=== PATIENT | male | born 1980 | race Caucasian/White ===

== ENCOUNTER 2020-03-01 10:23 | Outpatient (REF) | payer OTHER, SELFPAY | END 2020-03-01 10:24 | disposition home or self-care (01) | LOC: HO.LAB 10:23 | PROVIDERS: Visit Provider Internal Medicine | DX: Z20.828 Contact with and (suspected) exposure to other viral communicable diseases (principal) | CPT/HCPCS: C9803; U0003 ==

== ENCOUNTER → 2020-05-14 09:37 | Outpatient (BNVA) | payer OTHER, SELFPAY | PROVIDERS: Visit Provider Physician Assistant Medical | DX: S29.8XXA Other specified injuries of thorax, initial encounter (principal); W24.0XXA Contact with lifting devices, not elsewhere classified, initial encounter | CPT/HCPCS: 72072; 99203 ==

== ENCOUNTER → 2020-05-18 14:13 | Outpatient (BNVA) | payer OTHER, SELFPAY | PROVIDERS: Visit Provider Physician Assistant | DX: S30.0XXD Contusion of lower back and pelvis, subsequent encounter (principal); X58.XXXD Exposure to other specified factors, subsequent encounter | CPT/HCPCS: 99213 ==

== ENCOUNTER → 2020-05-25 09:02 | Outpatient (BNVA) | payer OTHER, SELFPAY | PROVIDERS: Visit Provider Physician Assistant | DX: S30.0XXD Contusion of lower back and pelvis, subsequent encounter (principal); X58.XXXD Exposure to other specified factors, subsequent encounter | CPT/HCPCS: 99213 ==

== ENCOUNTER → 2020-06-01 12:55 | Outpatient (BNVA) | payer OTHER, SELFPAY | PROVIDERS: Visit Provider Internal Medicine | DX: S30.0XXD Contusion of lower back and pelvis, subsequent encounter (principal); X58.XXXD Exposure to other specified factors, subsequent encounter | CPT/HCPCS: 99213 ==

== ENCOUNTER → 2020-06-10 13:47 | Outpatient (BNVA) | payer OTHER, SELFPAY | PROVIDERS: Visit Provider Internal Medicine | DX: S30.0XXD Contusion of lower back and pelvis, subsequent encounter (principal); X58.XXXD Exposure to other specified factors, subsequent encounter | CPT/HCPCS: 99213 ==

== ENCOUNTER → 2020-06-18 13:04 | Outpatient (BNVA) | payer OTHER, SELFPAY | PROVIDERS: Visit Provider Internal Medicine | DX: S20.219D Contusion of unspecified front wall of thorax, subsequent encounter (principal); X58.XXXD Exposure to other specified factors, subsequent encounter | CPT/HCPCS: 71101; 99214 ==

== ENCOUNTER → 2020-07-02 12:51 | Outpatient (BNVA) | payer OTHER, SELFPAY | PROVIDERS: Visit Provider Internal Medicine | DX: S20.219D Contusion of unspecified front wall of thorax, subsequent encounter (principal); X58.XXXD Exposure to other specified factors, subsequent encounter | CPT/HCPCS: 99213 ==

== ENCOUNTER 2020-07-15 10:00 | Outpatient (RCR) | payer OTHER, SELFPAY ==
--- NOTE | 2020-05-25 12:18 | MHC.PT.EP ---
[facility] [place] Office [place] Office [place] Office [address] Hiren Norris [address] [phone] F: [phone] F: [phone] F: [phone] F: [phone] Physical Therapy Plan of Care Date of Evaluation: 05/25/20 Date of Surgery: NA Diagnosis: R lumbar paraspinal contusion Assessment: 39 year old male referred for R lumbar paraspinal contusion . Pt reports of injuring his back at work about 2 weeks back. The handle of a pallet meena hit him in his back while he was working on a machine. Pt continued to work for the rest of the day. Pt had significant increase in pain the following day and therefore followed up with WC. Pt was given muscle relaxants. Pt had mild relief with these medications. Examination reveals 7/10 pain with standing, walking, forward bending, 5/10 pain with sitting, decreased trunk ROM, decreased muscle strength and altered posture. Pt has TTP alone R T9-T10 thoracic paraspinals. He is independent with ADLS but takes longer to complete it. 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 He is currently out of work. He is a good candidate for PT based on age, goals, physical impairments and functional limitations. He would benefit from PT to decrease pain, improve ROM, increase muscle strength, functional training and postural correction. Frequency and Duration: The patient will be seen 2/week for 4 weeks Short Term Goals: 1. Pt will have 50% decrease in pain which will enable him to sleep supine in 2 weeks. 2. Pt will be able to move trunk through all planes of motion without pain which will enable him to dress lower body without pain in 3 weeks. 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 Pt will be able to perform all ADLs without pain in 4 weeks. 2. Pt will return to PLOF in 4 weeks. Treatment Plan: Modalities to reduce pain, spasms and effusion. Manual therapy to restore motion and function. Therapeutic exercise to improve strength and flexibility. Neuromuscular re-education for posture and balance. Therapeutic activities to return to functional activities of daily living. Electronically signed by: Marsha Roman, DPT Please sign and return to therapist. Thank you for your referral.
--- NOTE | 2020-07-15 11:03 | MHC.PT.DC ---
[facility] [place] Office [place] Office [place] Office [address] Hiren Norris [address] [phone] F: [phone] F: [phone] F: [phone] F: [phone] Physical Therapy Discharge Report Diagnosis: R lumbar paraspinal contusion Date of Surgery: NA Date of Evaluation: 05/25/20 Date of Discharge: 07/15/20 Treatments to Date: 13 Cancellations to Date: 1 No Shows to Date: 1 Discharge Status: Improved Function Discharge Summary: Evin has completed 13 visits of outpatient physical therapy after injuring his back at work. During this time he has made improvements in LE strength and flexibility, core stability, lifting mechanics, and decreased levels of pain. Evin has met the majority of his physical therapy goals. 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 Evin was educated extensively on maintaining proper body mechanics when lifting and carrying items and he was given an extensive HEP to allow him to continue to manage his symptoms and maintain his health independently. Evin is now being discharged from physical therapy. Electronically signed by: Marsha Owens, PT, DPT Please sign and return to therapist. Thank you for your referral.
== END 2020-07-15 11:04 | disposition other institution (70) ==
LOC: HO.PT 10:00
PROVIDERS: Visit Provider Internal Medicine
DX: S30.0XXD Contusion of lower back and pelvis, subsequent encounter (principal)
CPT/HCPCS: 97110; 97112; 97140; 97161; 97530

== ENCOUNTER → 2020-07-20 14:00 | Outpatient (BNVA) | payer OTHER, SELFPAY | PROVIDERS: Visit Provider Internal Medicine | DX: S20.219D Contusion of unspecified front wall of thorax, subsequent encounter (principal); X58.XXXD Exposure to other specified factors, subsequent encounter | CPT/HCPCS: 99213 ==

== ENCOUNTER 2020-12-03 19:28 | Emergency (ER) | payer MEDICAID, SELFPAY ==
[2020-12-03 19:43] VITALS: BP 144/97; PULSE 95; RESP 16; TEMP 37.2; O2SAT 98; BMI 36.7
[2020-12-03 20:11] LABS: MANUAL DIFF FLAG NO
[2020-12-03 20:13] LABS: Basophils Percent Auto 0.3 % (0-2); Eosinophils Absolute Auto 0.2 X10*3/uL (0.0-0.4); Eosinophils Percent Auto 1.3 % (0-4); Hematocrit 47.9 % (42-52); Imm Gran Abs Auto 0.06 X10*3/uL (0.00-0.03); Imm Gran Pct Auto 0.5 % (0.0-0.4); Lymphocytes Absolute Auto 1.9 X10*3/uL (1.2-4.9); Lymphocytes Percent Auto 15.7 % (20-40); Mean Corpuscular HGB Conc 33.4 g/dl (31.0-36.0); Mean Corpuscular Volume 86.8 fL (80-98); Mean Platelet Volume 10.5 fL (9.4-12.4); Monocytes Absolute Auto 0.7 X10*3/uL (0.1-1.2); Monocytes Percent Auto 5.9 % (2-11); Neutrophils Absolute Auto 9.4 X10*3/uL (2.0-8.3); Neutrophils Percent Auto 76.3 % (45-73); Platelet Count 231 X10*3/uL (160-400); Red Blood Count 5.52 X10*6/uL (4.60-5.80); Red Cell Distribution Width 12.2 % (11.0-16.0); White Blood Count 12.3 X10*3/uL (4.8-10.8)
[2020-12-03 20:14] LABS: Glucose Urine UA >=1000 MG/DL (NEG); Leukocyte Esterase Urine TRACE (NEG); Nitrite Urine NEG (NEG); Specific Gravity - Urine >= 1.030 (1.005-1.025); UACC Culture Trigger YES; Urine Blood TRACE (NEG); Urine Ketones NEG (NEG); Urine Protein 2+ MG/DL (NEG-TRACE)
[2020-12-03 20:15] LABS: Appearance Urine HAZY; Color Urine AMBER
[2020-12-03 20:29] LABS: Bacteria Urine 1+ /LPF; Mucus Urine 2+ /LPF; Squamous Epithelial Cell Urine 1+ /LPF
[2020-12-03 20:45] LABS: Alanine Aminotransferase 30 U/L (0-40); Albumin Level 4.5 g/dL (3.5-5.0); Alkaline Phosphatase 96 U/L (39-117); Anion Gap 15 (12-20); Aspartate Amino Transferase 15 U/L (5-37); Blood Urea Nitrogen 13 mg/dL (9-16); Calcium 9.6 mg/dL (8.4-10.2); Carbon Dioxide 24 mmol/L (22-29); Chloride 102 mmol/L (96-108); Creatinine Clr Calc Pharmacy 110.4; Estimated Glomerular Filt Rate > 60; Glucose Random 355 mg/dL (60-115); Potassium 4.1 mmol/L (3.3-5.1); Sodium 137 mmol/L (135-145); Total Protein 7.3 g/dL (6.5-8.0)
--- NOTE | 2020-12-03 22:16 | ED.MALEGU ---
HPI - Male Genitourinary General Chief complaint: Urogenital-Male Stated complaint: Blood in urine Time Seen by Provider: 12/03/20 20:48 History of Present Illness HPI Narrative: Patient complains of episode of blood in the urine accompanied by dysuria which began this morning, no fever no chills no flank pain no dizziness no weakness no abdominal pain no nausea no vomiting, no abdominal pain Related Data Home Medications Medication Instructions Recorded Confirmed dulaglutide 0.75 mg/0.5 mL 1 mg SUBCUT QWEEK 12/03/20 12/03/20 subcutaneous pen injector (Trulicity) Previous Rx's Medication Instructions Recorded cefuroxime axetil 500 mg tablet 500 mg PO Q12H 7 Days #14 tab 12/03/20 Allergies Allergy/AdvReac Type Severity Reaction Status Date / Time No Known Allergies Allergy Verified 12/03/20 19:43 Review of Systems Review of Systems: Positive for blood in the urine and dysuria Negatives are no fever no chills no dizziness or weakness no fainting no feeling faint no headache no neck pain no chest pain no shortness of breath no abdominal pain no nausea vomiting or diarrhea no flank pain no back pain no skin rash no leg swelling Yes all other systems are reviewed and are negative [facility] Past Medical History Attestation statement: The following information was validated with the patient. [facility] Narrative: Patient is insulin-dependent diabetic but lost his insurance a few months ago so has not used his insulin in 3 months, he still has his diabetic doctor and can see her easily Source: nursing notes reviewed Medical History (Updated 12/03/20 @ 23:46 by RONNELL Lopez) Diabetes Social History Social History Advance Directives: No Physical Exam Vital Signs: Vital Signs: Last Vital Signs Temp 98.6 F 12/04/20 00:40 Pulse 88 12/04/20 00:40 Resp 16 12/04/20 00:40 BP 138/67 12/04/20 00:40 Pulse Ox 98 12/04/20 00:40 Body Mass Index 36.7 General appearance is no acute distress, comfortable The pupils are anicteric with no pallor The pharynx is clear with no redness or swelling, mucous membranes moist Neck is supple Respiratory no distress Chest clear to auscultation bilateral Abdomen is soft and nontender The back there is no CVA tenderness extremities no edema Course Course Course Narrative: Patient with 1 day of burning with urination and some blood in the urine, as well as being a noncompliant diabetic with a glucose of 354, no DKA, anion gap was normal, no fever White count was 12.3 and pulse was 95 Urinalysis was positive for urinary tract infection with bacteria white cells and red cells, there were no ketones initially plan was for admission but after discussion with hospitalist it was agreed that this patient could undergo trial of outpatient antibiotic as he is well-appearing and stable MDM - Male Genitourinary Lab Data Attestation: I reviewed the patient's lab results. Result diagrams: 12/03/20 20:06 12/03/20 20:06 Labs: Lab Results 12/03/20 12/03/20 12/03/20 Range/Units 20:06 20:06 20:06 WBC 12.3 H (4.8-10.8) X10*3/uL RBC 5.52 (4.60-5.80) X10*6/uL Hgb 16.0 (14.0-18.0) g/dl Hct 47.9 (42-52) % MCV 86.8 (80-98) fL MCH 29.0 (27.0-33.0) pg MCHC 33.4 (31.0-36.0) g/dl RDW 12.2 (11.0-16.0) % Plt Count 231 (160-400) X10*3/uL MPV 10.5 (9.4-12.4) fL Immature Gran % (Auto) 0.5 H (0.0-0.4) % Neut % (Auto) 76.3 H (45-73) % Lymph % (Auto) 15.7 L (20-40) % [place] % (Auto) 5.9 (2-11) % Eos % (Auto) 1.3 (0-4) % Baso % (Auto) 0.3 (0-2) % Lymph # (Auto) 1.9 (1.2-4.9) X10*3/uL [place] # (Auto) 0.7 (0.1-1.2) X10*3/uL Eos # (Auto) 0.2 (0.0-0.4) X10*3/uL Baso # (Auto) 0.0 (0.0-0.2) X10*3/uL Abs Immat Gran (auto) 0.06 H (0.00-0.03) X10*3/uL Absolute Neuts (auto) 9.4 H (2.0-8.3) X10*3/uL Absolute Nucleated RBC 0.000 (0.0-0.012) X10*3/uL Nucleated RBC % (auto) 0.0 (0.0-0.2) /100WBC Sodium 137 (135-145) mmol/L Potassium 4.1 (3.3-5.1) mmol/L Chloride 102 (96-108) mmol/L Carbon Dioxide 24 (22-29) mmol/L Anion Gap 15 (12-20) BUN 13 (9-16) mg/dL Creatinine 1.25 (0.5-1.4) mg/dL Estim Creat Clear Calc 110.4 Estimated GFR > 60 Random Glucose 355 H* (60-115) mg/dL Lactic Acid (0.5-2.0) mmol/L Calcium 9.6 (8.4-10.2) mg/dL Total Bilirubin 1.0 (0.0-1.0) mg/dL AST 15 (5-37) U/L ALT 30 (0-40) U/L Alkaline Phosphatase 96 (39-117) U/L Total Protein 7.3 (6.5-8.0) g/dL Albumin 4.5 (3.5-5.0) g/dL Urine Color SADAF Urine Appearance HAZY Urine pH 6.0 (5.0-8.0) Ur Specific [place] >= 1.030 H (1.005-1.025) Urine Protein 2+ H (NEG-TRACE) MG/DL Urine Glucose (UA) >=1000 H (NEG) MG/DL Urine Ketones NEG (NEG) MG/DL Urine Blood TRACE (NEG) Urine Nitrite NEG (NEG) Ur Leukocyte Esterase TRACE H (NEG) Urine RBC 5-9 H (0) /HPF Urine WBC 10-14 H (0-4) /HPF Ur Squamous Epith Cells 1+ /LPF Urine Bacteria 1+ /LPF Urine Mucus 2+ /LPF 12/03/ Range/Units 22:46 WBC (4.8-10.8) X10*3/uL RBC (4.60-5.80) X10*6/uL Hgb (14.0-18.0) g/dl Hct (42-52) % MCV (80-98) fL MCH (27.0-33.0) pg MCHC (31.0-36.0) g/dl RDW (11.0-16.0) % Plt Count (160-400) X10*3/uL MPV (9.4-12.4) fL Immature Gran % (Auto) (0.0-0.4) % Neut % (Auto) (45-73) % Lymph % (Auto) (20-40) % [place] % (Auto) (2-11) % Eos % (Auto) (0-4) % Baso % (Auto) (0-2) % Lymph # (Auto) (1.2-4.9) X10*3/uL [place] # (Auto) (0.1-1.2) X10*3/uL Eos # (Auto) (0.0-0.4) X10*3/uL Baso # (Auto) (0.0-0.2) X10*3/uL Abs Immat Gran (auto) (0.00-0.03) X10*3/uL Absolute Neuts (auto) (2.0-8.3) X10*3/uL Absolute Nucleated RBC (0.0-0.012) X10*3/uL Nucleated RBC % (auto) (0.0-0.2) /100WBC Sodium (135-145) mmol/L Potassium (3.3-5.1) mmol/L Chloride (96-108) mmol/L Carbon Dioxide (22-29) mmol/L Anion Gap (12-20) BUN (9-16) mg/dL Creatinine (0.5-1.4) mg/dL Estim Creat Clear Calc Estimated GFR Random Glucose (60-115) mg/dL Lactic Acid 1.6 (0.5-2.0) mmol/L Calcium (8.4-10.2) mg/dL Total Bilirubin (0.0-1.0) mg/dL AST (5-37) U/L ALT (0-40) U/L Alkaline Phosphatase (39-117) U/L Total Protein (6.5-8.0) g/dL Albumin (3.5-5.0) g/dL Urine Color Urine Appearance Urine pH (5.0-8.0) Ur Specific [place] (1.005-1.025) Urine Protein (NEG-TRACE) MG/DL Urine Glucose (UA) (NEG) MG/DL Urine Ketones (NEG) MG/DL Urine Blood (NEG) Urine Nitrite (NEG) Ur Leukocyte Esterase (NEG) Urine RBC (0) /HPF Urine WBC (0-4) /HPF Ur Squamous Epith Cells /LPF Urine Bacteria /LPF Urine Mucus /LPF Discharge Plan Discharge Clinical Impression: Urinary tract infection, Hyperglycemia Patient Disposition: Home, Self-Care Additional Instructions: We are treating for urinary tract infection with antibiotic For your diabetes follow with your diabetes doctor and if you cannot get your Trulicity due to insurance problems she may change you to a different form of insulin If insulin is too expensive the [facility] as insulin that is affordable for regular people so you can get insulin at [facility] but probably not Trulicity Return to ER any time for fever, vomiting, abdominal pain, flank pain or back pain, any worse condition or any concerns Prescriptions: New cefuroxime axetil 500 mg tablet 500 mg PO Q12H 7 Days Qty: 14 RF: 0 No Action Trulicity 0.75 mg/0.5 mL pen injector 1 mg subcut QWEEK RF: 0 Interventions: ED Discharge Assessment Last Done: 12/04/20 00:35 Discharge Date/Time: 12/04/20 00:42 Print Language: Greek
[2020-12-03 23:09] LABS: Lactic Acid 1.6 mmol/L (0.5-2.0)
[2020-12-03] MEDS: cefTRIAXone sodium 1 GM in 0.9 % Sodium Chloride 50 ML IV (23:13)
[2020-12-03] MEDS: 0.9 % Sodium Chloride 1,000 ML 999 ML IVCONT (23:19)
--- NOTE | 2020-12-04 00:38 | PC.NURSE ---
RONNELL DESIR DISCUSSED WITH 2 DOCTOR ABOUT SENDING PT HOME ON ANTIBIOTIC INSTEAD OF ADMITTING.
[2020-12-04 00:40] VITALS: BP 138/67; PULSE 88; RESP 16; TEMP 37; O2SAT 98
== END 2020-12-04 00:42 | disposition home or self-care (01) ==
PROVIDERS: Physician Assistant Medical; Emergency Provider Emergency Medicine
DX: N39.0 Urinary tract infection, site not specified (principal); E11.65 Type 2 diabetes mellitus with hyperglycemia; Z91.14 Patient's other noncompliance with medication regimen
CPT/HCPCS: 36415; 80053; 81001; 83605; 85025; 87040; 87086; 96361; 96374; 99284; J0696

== ENCOUNTER 2021-03-15 05:12 | Emergency (ER) | payer MEDICAID, SELFPAY ==
--- NOTE | 2021-03-15 | ECG_ITS ---
Test Reason : chest tightness Blood Pressure : / mmHG Vent. Rate : 065 BPM Atrial Rate : 065 BPM P-R Int : 168 ms QRS Dur : 082 ms QT Int : 418 ms P-R-T Axes : 027 020 021 degrees QTc Int : 434 ms Normal sinus rhythm Normal ECG When compared with ECG of 06-JAN-2009 20:17, No significant change was found Referred By: Generic ED Physician Electronically Signed By:CATRINA DICKERSON MD
[2021-03-15 05:42] VITALS: BP 143/88; PULSE 67; RESP 15; TEMP 36.9; O2SAT 98; BMI 36.9
[2021-03-15 05:56] LABS: Glucose, Whole Blood 175 mg/dL (60-115)
--- NOTE | 2021-03-15 07:45 | ED_ITS ---
HPI - General Adult General Chief complaint: General Medical Stated complaint: chest pressure Time Seen by Provider: 03/15/21 07:43 Source: patient Mode of arrival: ambulatory Limitations: no limitations History of Present Illness HPI narrative: 40-year-old male came in for evaluation of lightheadedness. Patient last night at 19:00 took his weekly dose of Trulicity to control his diabetes, shortly after he took the Trulicity felt lightheadedness, spacey, patient went to [facility] for evaluation because the long wait in waiting room patient decided to come to our emergency department, patient still feel spacey with lightheadedness, patient otherwise decline chest pain or heaviness, no shortness of breath, patient complained of headache earlier but improved after he took Tylenol. Patient reported improvement of symptoms. Related Data Home Medications Medication Instructions Recorded Confirmed dulaglutide 0.75 mg/0.5 mL 1 mg SUBCUT QWEEK 12/03/20 12/03/20 subcutaneous pen injector (Trulicity) Previous Rx's Medication Instructions Recorded cefuroxime axetil 500 mg tablet 500 mg PO Q12H 7 Days #14 tab 12/03/20 Allergies Allergy/AdvReac Type Severity Reaction Status Date / Time No Known Allergies Allergy Verified 12/03/20 19:43 Review of Systems Review of Systems: All other systems are reviewed and are negative Constitutional: Reports as per HPI and Reports no additional constitutional complaints Eyes: Reports as per HPI and Reports no additional eye complaints Reports system reviewed and no additional complaints, except as documented Cardiovascular: Reports as per HPI and Reports no additional cardiovascular complaints Respiratory: Reports as per HPI and Reports no additional respiratory complaints Gastrointestinal: Reports as per HPI and Reports no additional gastrointestinal complaints Genitourinary: Reports no additional female genitourinary complaints Musculoskeletal: Reports no additional musculoskeletal complaints Skin/Breast: Reports system reviewed and no additional complaints, except as docu Psychiatric: Reports no additional psychiatric complaints Endocrine: Reports no additional endocrine complaints Hematologic/Lymphatic: Reports no additional hematologic/lymphatic complaints Allergic/Immunologic: Reports no additional allergic/immunologic complaints Reports system reviewed and no additional complaints, except as documented and Reports Abnormal speech present [facility] Past Medical History Medical History Diabetes Social History Social History Alcohol intake: current Patient Tobacco Use Status: Current everyday Tobacco user Use of substances other than those prescribed or required for medical reasons: No Advance Directives: No Advance Directives Information Provided: No Physical Exam Vital Signs: Vital Signs: Last Vital Signs Temp 98.2 F 03/15/21 10:16 Pulse 70 03/15/21 10:16 Resp 18 03/15/21 10:16 BP 109/71 03/15/21 10:16 Pulse Ox 97 03/15/21 10:16 Body Mass Index 36.9 Vital signs have been reviewed as appeared to be correct. Blood pressure normal. Heart rate normal. Respiration rate normal. Temperature normal. Oxygen saturation normal. Appearance: Alert. Oriented X3. No acute distress. Head: Normal external exam. Normocephalic. Atraumatic. No Hyatt signs noted. No raccoon eyes noted Eyes: PERRLA. EOMI. Conjunctiva and sclera normal. Eyelids normal. ENT: TM's Normal. Pharynx normal. Uvula midline. Dry mucous membranes. No trismus noted. No drooling noted. No muffled voice noted. Neck: Normal inspection. Neck supple. FROM. No adenopathy. Thyroid Normal. No meningeal signs. No neck mass noted. CVS: Normal heart rate and rhythm. Heart sound normal. No murmurs noted. Pulses normal throughout. Respiratory: No respiratory distress. Painless inspiration. Breath sounds caleb l. No wheezes/rales/rhonchi noted. Chest nontender. No accessory muscle usage noted or decreased air movement noted. Abdomen: Soft and nontender. Bowel sounds normal in all 4 quadrants. No distention noted. No organomegaly noted. No visible injury noted. Back: No CVA tenderness. Full range of motion noted. Skin: Skin warm and dry. Normal skin color. Normal skin turgor. No rashes/lesions/lacerations noted. Extremities: No lower extremity edema. Extremities exhibit normal range of motion. Extremities nontender. Neuro: Oriented X 3. Cranial nerve exam: II-XII are grossly intact No motor deficit. No sensory deficit. Reflexes normal. Course Course Course Narrative: Assessment and plan. 40-year-old male diabetic on Trulicity came in feeling generalized weakness, lightheadedness with no syncope, patient has no chest pain. Appeared dry mucous membrane and dehydrated on the physical exam, patient after hydration feels better able to tolerate p.o. intake, patient now is back to his baseline. Medical Decision Making Lab Data Lab results reviewed: Yes I reviewed the patient's lab results. Result diagrams: 03/15/21 07:53 03/15/21 07:53 Labs: Lab Results 03/15/21 03/15/21 03/15/21 Range/Units 05:53 07:53 07:53 WBC 12.4 H (4.8-10.8) X10*3/uL RBC 5.15 (4.60-5.80) X10*6/uL Hgb 14.6 (14.0-18.0) g/dl Hct 44.8 (42.0-52.0) % MCV 87.0 (80.0-98.0) fL MCH 28.3 (27.0-33.0) pg MCHC 32.6 (31.0-36.0) g/dl RDW 12.1 (11.0-16.0) % Plt Count 229 (160-400) X10*3/uL MPV 10.1 (9.4-12.4) fL Immature Gran % (Auto) 0.3 (0.0-0.4) % Neut % (Auto) 63.9 (45-73) % Lymph % (Auto) 26.3 (20-40) % [place] % (Auto) 7.5 (2-11) % Eos % (Auto) 1.8 (0-4) % Baso % (Auto) 0.2 (0-2) % Lymph # (Auto) 3.3 (1.2-4.9) X10*3/uL [place] # (Auto) 0.9 (0.1-1.2) X10*3/uL Eos # (Auto) 0.2 (0.0-0.4) X10*3/uL Baso # (Auto) 0.0 (0.0-0.2) X10*3/uL Abs Immat Gran (auto) 0.04 H (0.00-0.03) X10*3/uL Absolute Neuts (auto) 7.9 (2.0-8.3) x10*3/uL Absolute Nucleated RBC 0.000 (0.0-0.012) X10*3/uL Nucleated RBC % (auto) 0.0 (0.0-0.2) /100WBC Sodium 141 (135-145) mmol/L Potassium 3.9 (3.3-5.1) mmol/L Chloride 105 (96-108) mmol/L Carbon Dioxide 27 (22-29) mmol/L Anion Gap 13 (12-20) BUN 13 (9-16) mg/dL Creatinine 0.94 (0.5-1.4) mg/dL Estim Creat Clear Calc 147.3 Estimated GFR > 60 POC Glucose 175 H (60-115) mg/dL Random Glucose 119 H D (60-115) mg/dL Calcium 9.7 (8.4-10.2) mg/dL Total Bilirubin 0.5 (0.0-1.0) mg/dL Direct Bilirubin 0.2 (0.0-0.5) mg/dL AST 19 (5-37) U/L ALT 28 (0-40) U/L Alkaline Phosphatase 94 (39-117) U/L Troponin I High Sens (<3.5-35.0) ng/L Total Protein 6.8 (6.5-8.0) g/dL Albumin 4.2 (3.5-5.0) g/dL Lipase 72 (8-78) U/L Urine Color Urine Appearance Urine pH (5.0-8.0) Ur Specific [place] (1.005-1.025) Urine Protein (NEG-TRACE) MG/DL Urine Glucose (UA) (NEG) MG/DL Urine Ketones (NEG) MG/DL Urine Blood (NEG) Urine Nitrite (NEG) Ur Leukocyte Esterase (NEG) 03/15/21 03/15/21 03/15/21 Range/Units 07:53 10:22 10:25 WBC (4.8-10.8) X10*3/uL RBC (4.60-5.80) X10*6/uL Hgb (14.0-18.0) g/dl Hct (42.0-52.0) % MCV (80.0-98.0) fL MCH (27.0-33.0) pg MCHC (31.0-36.0) g/dl RDW (11.0-16.0) % Plt Count (160-400) X10*3/uL MPV (9.4-12.4) fL Immature Gran % (Auto) (0.0-0.4) % Neut % (Auto) (45-73) % Lymph % (Auto) (20-40) % [place] % (Auto) (2-11) % Eos % (Auto) (0-4) % Baso % (Auto) (0-2) % Lymph # (Auto) (1.2-4.9) X10*3/uL [place] # (Auto) (0.1-1.2) X10*3/uL Eos # (Auto) (0.0-0.4) X10*3/uL Baso # (Auto) (0.0-0.2) X10*3/uL Abs Immat Gran (auto) (0.00-0.03) X10*3/uL Absolute Neuts (auto) (2.0-8.3) x10*3/uL Absolute Nucleated RBC (0.0-0.012) X10*3/uL Nucleated RBC % (auto) (0.0-0.2) /100WBC Sodium (135-145) mmol/L Potassium (3.3-5.1) mmol/L Chloride (96-108) mmol/L Carbon Dioxide (22-29) mmol/L Anion Gap (12-20) BUN (9-16) mg/dL Creatinine (0.5-1.4) mg/dL Estim Creat Clear Calc Estimated GFR POC Glucose 168 H (60-115) mg/dL Random Glucose (60-115) mg/dL Calcium (8.4-10.2) mg/dL Total Bilirubin (0.0-1.0) mg/dL Direct Bilirubin (0.0-0.5) mg/dL AST (5-37) U/L ALT (0-40) U/L Alkaline Phosphatase (39-117) U/L Troponin I High Sens < 3.5 (<3.5-35.0) ng/L Total Protein (6.5-8.0) g/dL Albumin (3.5-5.0) g/dL Lipase (8-78) U/L Urine Color YELLOW Urine Appearance CLEAR Urine pH 5.5 (5.0-8.0) Ur Specific [place] >= 1.030 H (1.005-1.025) Urine Protein NEG (NEG-TRACE) MG/DL Urine Glucose (UA) NEG (NEG) MG/DL Urine Ketones NEG (NEG) MG/DL Urine Blood NEG (NEG) Urine Nitrite NEG (NEG) Ur Leukocyte Esterase NEG (NEG) ECG Data Attestation: I personally reviewed and interpreted this ECG as follows: Interpretation: Normal sinus rhythm at 65 beats per minute, normal intervals, no ST-T changes. Discharge Plan Discharge Clinical Impression: Dehydration Patient Disposition: Home, Self-Care Instructions: Dehydration (ED) Prescriptions: No Action Trulicity 0.75 mg/0.5 mL pen injector 1 mg subcut QWEEK RF: 0 cefuroxime axetil 500 mg tablet 500 mg PO Q12H 7 Days Qty: 14 RF: 0 Referrals: Thao Allen NP [Primary Care Provider] - 2 days
[2021-03-15 07:57] LABS: MANUAL DIFF FLAG NO
[2021-03-15 08:00] LABS: Basophils Percent Auto 0.2 % (0-2); Eosinophils Absolute Auto 0.2 X10*3/uL (0.0-0.4); Eosinophils Percent Auto 1.8 % (0-4); Hematocrit 44.8 % (42.0-52.0); Hemoglobin 14.6 g/dl (14.0-18.0); Imm Gran Abs Auto 0.04 X10*3/uL (0.00-0.03); Imm Gran Pct Auto 0.3 % (0.0-0.4); Lymphocytes Absolute Auto 3.3 X10*3/uL (1.2-4.9); Lymphocytes Percent Auto 26.3 % (20-40); Mean Corpuscular HGB Conc 32.6 g/dl (31.0-36.0); Mean Corpuscular Hemoglobin 28.3 pg (27.0-33.0); Mean Platelet Volume 10.1 fL (9.4-12.4); Monocytes Absolute Auto 0.9 X10*3/uL (0.1-1.2); Monocytes Percent Auto 7.5 % (2-11); Neutrophils Absolute Auto 7.9 x10*3/uL (2.0-8.3); Neutrophils Percent Auto 63.9 % (45-73); Platelet Count 229 X10*3/uL (160-400); Red Blood Count 5.15 X10*6/uL (4.60-5.80); Red Cell Distribution Width 12.1 % (11.0-16.0); White Blood Count 12.4 X10*3/uL (4.8-10.8)
[2021-03-15 08:16] LABS: Alanine Aminotransferase 28 U/L (0-40); Albumin Level 4.2 g/dL (3.5-5.0); Alkaline Phosphatase 94 U/L (39-117); Anion Gap 13 (12-20); Aspartate Amino Transferase 19 U/L (5-37); Bilirubin Direct 0.2 mg/dL (0.0-0.5); Bilirubin Total 0.5 mg/dL (0.0-1.0); Blood Urea Nitrogen 13 mg/dL (9-16); Calcium 9.7 mg/dL (8.4-10.2); Carbon Dioxide 27 mmol/L (22-29); Chloride 105 mmol/L (96-108); Creatinine Clr Calc Pharmacy 147.3; Estimated Glomerular Filt Rate > 60; Glucose Random 119 mg/dL (60-115); Lipase 72 U/L (8-78); Potassium 3.9 mmol/L (3.3-5.1); Sodium 141 mmol/L (135-145); Total Protein 6.8 g/dL (6.5-8.0)
[2021-03-15 08:20] LABS: Troponin-I High Sensitivity < 3.5 ng/L (<3.5-35.0)
[2021-03-15] MEDS: 0.9 % Sodium Chloride 1,000 ML 999 ML IVCONT (10:09)
[2021-03-15 10:16] VITALS: BP 109/71; PULSE 70; RESP 18; TEMP 36.8; O2SAT 97
--- NOTE | 2021-03-15 10:19 | PC.NURSE ---
pt has been sleeping since [facility] rn arrival at 7am. awake now. no complaints. skin pwd. nsr on monitor.
[2021-03-15 10:29] LABS: Glucose, Whole Blood 168 mg/dL (60-115)
[2021-03-15 10:33] LABS: Appearance Urine CLEAR; Color Urine YELLOW; Glucose Urine UA NEG (NEG); Leukocyte Esterase Urine NEG (NEG); Nitrite Urine NEG (NEG); PH 5.5 (5.0-8.0); Specific Gravity - Urine >= 1.030 (1.005-1.025); Urine Blood NEG (NEG); Urine Ketones NEG (NEG); Urine Protein NEG (NEG-TRACE)
--- NOTE | 2021-03-15 11:19 | PC.NURSE ---
1ST ENCOUNTER WITH PATIENT FOR DC PURPOSES. PT AWAKE, ALERT AND ORIENTED X 3. SKIN WARM AND DRY. RESP UNLABORED. DENIES N/V. NO C/O PAIN PRESENTLY. PLAN IS FOR DC HOME. PT AWARE AND AGREEABLE TO PLAN. IV REMOVED. TOLERATING PO
== END 2021-03-15 11:25 | disposition home or self-care (01) ==
PROVIDERS: Emergency Provider Emergency Medicine; PCP Nurse Practitioner Family
DX: E86.0 Dehydration (principal); E11.9 Type 2 diabetes mellitus without complications; Z79.4 Long term (current) use of insulin; F17.200 Nicotine dependence, unspecified, uncomplicated
CPT/HCPCS: 36415; 80048; 80076; 81003; 82947; 83690; 84484; 85025; 93005; 96360; 99284; 99285

== ENCOUNTER 2021-09-05 16:00 | Emergency (ER) | payer MEDICAID, SELFPAY ==
--- NOTE | ~2021-09-05 | XR_ITS ---
EXAMINATION: LUMBOSACRAL SPINE, SACRUM AND COCCYX, PELVIS CLINICAL INFORMATION: Coronal course with right-sided pain COMPARISON: CT abdomen pelvis 03/22/2017 TECHNIQUE: Single view pelvis, 3 views lumbosacral spine, 3 views sacrum and coccyx. FINDINGS: Lumbar spine: There is minimal anterior wedging of T11, T12 and L1. An acute fracture is not seen. Findings are similar when compared to 03/22/2017 CT scan. Disc spaces are well preserved. No bony destructive lesions. Sacrum and coccyx: No acute fracture is seen. No bony destructive lesions seen. There is partial fusion of the lower portion of the sacrum, unchanged when compared to the 03/22/2017. XR/XR pelvis 1-2V IMPRESSION: No evidence of a traumatic injury involving the lumbosacral spine, sacrum and coccyx or pelvis
--- NOTE | ~2021-09-05 | XR_ITS ---
EXAMINATION: LUMBOSACRAL SPINE, SACRUM AND COCCYX, PELVIS CLINICAL INFORMATION: Coronal course with right-sided pain COMPARISON: CT abdomen pelvis 03/22/2017 TECHNIQUE: Single view pelvis, 3 views lumbosacral spine, 3 views sacrum and coccyx. FINDINGS: Lumbar spine: There is minimal anterior wedging of T11, T12 and L1. An acute fracture is not seen. Findings are similar when compared to 03/22/2017 CT scan. Disc spaces are well preserved. No bony destructive lesions. Sacrum and coccyx: No acute fracture is seen. No bony destructive lesions seen. There is partial fusion of the lower portion of the sacrum, unchanged when compared to the 03/22/2017. XR/XR lumbar spine 2-3V IMPRESSION: No evidence of a traumatic injury involving the lumbosacral spine, sacrum and coccyx or pelvis
--- NOTE | ~2021-09-05 | XR_ITS ---
EXAMINATION: LUMBOSACRAL SPINE, SACRUM AND COCCYX, PELVIS CLINICAL INFORMATION: Coronal course with right-sided pain COMPARISON: CT abdomen pelvis 03/22/2017 TECHNIQUE: Single view pelvis, 3 views lumbosacral spine, 3 views sacrum and coccyx. FINDINGS: Lumbar spine: There is minimal anterior wedging of T11, T12 and L1. An acute fracture is not seen. Findings are similar when compared to 03/22/2017 CT scan. Disc spaces are well preserved. No bony destructive lesions. Sacrum and coccyx: No acute fracture is seen. No bony destructive lesions seen. There is partial fusion of the lower portion of the sacrum, unchanged when compared to the 03/22/2017. XR/XR sacrum coccyx min 2V IMPRESSION: No evidence of a traumatic injury involving the lumbosacral spine, sacrum and coccyx or pelvis
[2021-09-05 16:31] VITALS: BP 156/96; PULSE 76; RESP 18; TEMP 36.9; O2SAT 98; BMI 36.3
--- NOTE | 2021-09-05 17:32 | ED_ITS ---
HPI - Back Pain/Injury General Chief Complaint: Back Pain/Injury Stated Complaint: Back Pain S/P Injury 09/03/21 Time Seen by Provider: 09/05/21 17:27 Source: patient Mode of arrival: ambulatory Limitations: no limitations History of Present Illness HPI Narrative: 40-year-old male with history of DM here with low back pain after being thrown off a horse yesterday. Denies any hitting of the head or loss of consciousness. No radiation of pain. No numbness or tingling. No bowel or bladder incontinence. Patient has history of prior back injury but has been feeling well until this injury. Related Data Home Medications Medication Instructions Recorded Confirmed dulaglutide 0.75 mg/0.5 mL 1 mg SUBCUT QWEEK 12/03/20 12/03/20 subcutaneous pen injector (Trulicity) Previous Rx's Medication Instructions Recorded cefuroxime axetil 500 mg tablet 500 mg PO Q12H 7 Days #14 tab 12/03/20 cyclobenzaprine 10 mg tablet 10 mg PO TID PRN #14 tab 09/05/21 naproxen 500 mg tablet 500 mg PO BID PRN #20 tab 09/05/21 Allergies Allergy/AdvReac Type Severity Reaction Status Date / Time No Known Allergies Allergy Verified 12/03/20 19:43 Review of Systems Review of Systems: Yes all other systems are reviewed and are negative Constitutional: Constitutional: Reports no additional constitutional complaints, Denies body ache(s), Denies chills, Denies fever(s), Denies headache(s) and Denies weakness Eyes: Eyes: Reports no additional eye complaints and Denies change in vision ENT: Reports system reviewed and no additional complaints, except as documented, Denies dizziness, Denies headache(s), Denies nasal congestion, Denies nasal discharge and Denies neck pain Cardiovascular: Cardiovascular: Reports no additional cardiovascular complaints, Denies chest pain, Denies leg edema and Denies dyspnea Respiratory: Respiratory: Reports no additional respiratory complaints, Denies cough and Denies dyspnea Gastrointestinal: Gastrointestinal: Reports no additional gastrointestinal complaints, Denies abdominal pain, Denies diarrhea, Denies nausea and Denies vomiting Genitourinary: Genitourinary: Denies urinary incontinence Musculoskeletal: Musculoskeletal: Reports no additional musculoskeletal complaints, Reports back pain, Denies arthralgias, Denies joint swelling, Denies neck pain, Denies numbness and Denies tingling Integumentary/Breasts: Skin/Breast: Reports system reviewed and no additional complaints, except as docu and Denies rash Neurologic: Reports system reviewed and no additional complaints, except as documented, Denies dizziness, Denies headache(s), Denies numbness, Denies tingling and Denies weakness PMFSH Past Medical History Attestation statement: The following information was validated with the patient. Source: old records reviewed and nursing notes reviewed Medical History Diabetes Social History Social History Alcohol intake: current Patient Tobacco Use Status: Current everyday Tobacco user Advance Directives: No Advance Directives Information Provided: No Physical Exam Vital Signs: Vital Signs: Last Vital Signs Temp 98.4 F 09/05/21 16:31 Pulse 76 09/05/21 16:31 Resp 18 09/05/21 16:31 BP 156/96 H 09/05/21 16:31 Pulse Ox 98 09/05/21 16:31 BMI result Body Mass Index 36.3 Const: General: cooperative, healthy appearing, comfortable and no acute distress Orientation/consciousness: patient oriented x3 Limitations: no limitations HEENT: Head: Yes normal to inspection Ears: hearing grossly normal bi laterally and TM's normal bilaterally General nose exam: Normal external nose present Face and sinus: Yes normal facial exam Mouth: Normal oral and palatal mucosa present Throat: Yes posterior oropharynx normal, Yes tonsils normal and Yes uvula midline Eyes: General: appearance normal, both eyes and all related structures Pupils: Equal, round and reactive pupils present Neck: Neck: Yes normal visual inspection, Yes full ROM, Yes no lymphadenopathy and Yes no meningeal signs Chest: Chest palpation & inspection: normal inspection of the chest Resp: Effort & Inspection: normal respiratory effort Auscultation: clear to auscultation bilaterally Cardio: Rate: regular rate Rhythm: regular rhythm Peripheral pulses: Peripheral pulses 2+ throughout GI: Inspection: Yes normal to inspection Palpation (GI): Soft to palpation and nontender : General: Yes no CVA tenderness Back/Spine/Pelvis: Other: Lumbar mid spine tenderness with no step-offs deformities. Tenderness over the right posterior pelvis with no pelvic instability. Back: no CVA tenderness Neuro: General: patient oriented x3, moves all extremities and no meningeal signs Cranial nerves: Yes CN's II-XII intact bilaterally, Yes Equal, round and reactive pupils present, Yes Bilaterally intact EOM present, Yes Nystagmus not present, Yes Normal facial strength present and Yes Midline tongue present Cognition (Neuro): normal cognition Gait exam (Neuro): Normal gait present Motor exam (neuro): 5/5 motor strength present throughout Sensory Exam: Normal double simultaneous stimulation for sensation Deep tendon reflexes (DTR's): Right patellar reflex intensity grade: 2+ and Left patellar reflex intensity grade: 2+ Coordination: [id number] test normal, [id number] test normal and tandem gait normal Extrem: General: Yes normal to inspection, Yes no pedal edema and Yes no calf tenderness Course Course Course Narrative: Low back pain/right sided posterior hip pain s/p thrown off horse. Will check x- rays, provide analgesia Reevaluation(s) Reevaluation #1: X-ray showed no acute finding. Likely contusion. Neuro exam is normal. No neurological findings or red flag symptoms. Will discharge home with NSAIDs, muscle relaxant. Reviewed worrisome signs and symptoms of when to return to the emergency department. Comfortable discharge home. Time: 19:00 MDM - Back Pain/Injury Medical Records Attestation: I reviewed the patient's medical records. Lab Data Attestation: I reviewed the patient's lab results. Imaging Data lumbar/pelvis/coccyz/sacrum xray: Attestation: I personally reviewed and interpreted this imaging study as follows: Radiologist's impression: [address] [address] XRay Report Signed Patient: Evin Mckeon MR#: [id number] : 1980 Acct:[id number] Age/Sex: 40 / M ADM Date: 09/05/21 Loc: .ED Attending Dr: Ordering Physician: Gaby Storey NP Date of Service: 09/05/21 Procedure(s): XR lumbar spine 2-3V Accession Number(s): [id number] cc: Gaby Storey NP~ EXAMINATION: LUMBOSACRAL SPINE, SACRUM AND COCCYX, PELVIS CLINICAL INFORMATION: Coronal course with right-sided pain? COMPARISON: CT abdomen pelvis 03/22/2017? TECHNIQUE: Single view pelvis, 3 views lumbosacral spine, 3 views sacrum and coccyx.? FINDINGS: Lumbar spine: There is minimal anterior wedging of T11, T12 and L1. An acute fracture is not seen. Findings are similar when compared to 03/22/2017 CT scan. Disc spaces are well preserved. No bony destructive lesions. Sacrum and coccyx: No acute fracture is seen. No bony destructive lesions seen. There is partial fusion of the lower portion of the sacrum, unchanged when compared to the 03/22/2017. XR/XR lumbar spine 2-3V IMPRESSION: No evidence of a traumatic injury involving the lumbosacral spine, sacrum and coccyx or pelvis? Discharge Plan Discharge Clinical Impression: Back contusion Patient Disposition: Home, Self-Care Instructions: Contusion in Adults (ED) Additional Instructions: Heat or ice Gentle stretching No heavy lifting or bending Prescriptions: New cyclobenzaprine 10 mg tablet 10 mg PO TID PRN (Reason: muscle spasm) Qty: 14 0RF naproxen 500 mg tablet 500 mg PO BID PRN (Reason: pain) Qty: 20 0RF No Action Trulicity 0.75 mg/0.5 mL pen injector 1 mg subcut QWEEK 0RF cefuroxime axetil 500 mg tablet 500 mg PO Q12H 7 Days Qty: 14 0RF Referrals: Thao Allen, [employer] [Primary Care Provider] - 1 week (For persistent symptoms) Stand Alone Forms: Work/School Release Interventions: ED Discharge Assessment Last Done: 09/05/21 19:00 Discharge Date/Time: 09/05/21 19:01
[2021-09-05] MEDS: Ketorolac Tromethamine 60 MG/2 ML VIAL IM (17:52)
== END 2021-09-05 19:01 | disposition home or self-care (01) ==
PROVIDERS: Emergency Provider Emergency Medicine; PCP Nurse Practitioner Family
DX: S30.0XXA Contusion of lower back and pelvis, initial encounter (principal); V80.010A Animal-rider injured by fall from or being thrown from horse in noncollision accident, initial encounter; Y93.52 Activity, horseback riding; Y92.73 Farm field as the place of occurrence of the external cause; Y99.8 Other external cause status
CPT/HCPCS: 72100; 72170; 72220; 96372; 99283; 99284; J1885

== ENCOUNTER 2022-03-06 01:04 | Emergency (ER) | payer MEDICAID, SELFPAY ==
[2022-03-06 01:14] VITALS: BP 147/74; BP 149/82; PULSE 64; PULSE 68; RESP 16; O2SAT 100; O2SAT 95; BMI 36.9
--- NOTE | 2022-03-06 01:27 | ED.NAVMDI ---
HPI - Nausea/Vomiting/Diarrhea General Chief complaint: Nausea/Vomiting/Diarrhea Stated complaint: dizziness,stomach discomfort Time Seen by Provider: 03/06/22 01:06 Source: patient Mode of arrival: EMS History of Present Illness HPI Narrative: 41-year-old male, known diabetic arrives via EMS for multiple episodes of nausea and vomiting and feeling dizzy. Patient states that he was feeling just fine throughout the day, had fast food check in and then came home and ate the same dinner as everyone else in the house, fell asleep, and then states he woke up feeling dizzy, noted to be diaphoretic and was extremely nauseous. He did vomit and states that the dizziness has improved and that he does feel much better after vomiting. He admits that he used marijuana in the evening but otherwise denies any fever, chills, shortness of breath, chest pain/palpitations. Related Data Home Medications Medication Instructions Recorded Confirmed dulaglutide 0.75 mg/0.5 mL 1 mg subcut QWEEK 12/03/20 12/03/20 subcutaneous pen injector (Trulicity) Previous Rx's Medication Instructions Recorded cefuroxime axetil 500 mg tablet 500 mg PO Q12H 7 days #14 tabs 12/03/20 cyclobenzaprine 10 mg tablet 10 mg PO TID PRN muscle spasm #14 09/05/21 tabs naproxen 500 mg tablet 500 mg PO BID PRN pain #20 tabs 09/05/21 Allergies Allergy/AdvReac Type Severity Reaction Status Date / Time No Known Allergies Allergy Verified 12/03/20 19:43 Review of Systems Review of Systems: Pertinent positives and negatives as stated in HPI 10 point review of systems is otherwise negative. [facility] Past Medical History Source: nursing notes reviewed Medical History Diabetes Social History Social History Alcohol intake: current Alcohol intake frequency: holidays/special occasions only Patient Tobacco Use Status: Current everyday Tobacco user Smoked in Last 30 Days: Yes Use of substances other than those prescribed or required for medical reasons: Yes Substance Use Type: Marijuana Substance Use Frequency: Daily Advance Directives: No Advance Directives Information Provided: Yes Physical Exam Vital Signs: Vital Signs: Last Vital Signs Temp 97.8 F 03/06/22 02:09 Pulse 66 03/06/22 02:09 Resp 16 03/06/22 01:14 BP 128/88 03/06/22 02:09 Pulse Ox 97 03/06/22 02:09 O2 Del Method 03/06/22 02:09 BMI result Body Mass Index 36.9 VITAL SIGNS: Reviewed. GENERAL: Well developed, well nourished, in no acute distress. HEAD: Normocephalic/atraumatic EYES: PERRLA, EOMI EARS: Ext canals without abnormality OROPHARYNX: no oral lesions noted, posterior pharynx clear LUNGS: Normal breath sounds. No adventitious sounds or accessory muscle use. SpO2<97> CARDIOVASCULAR: Regular rate and rhythm without noted murmurs ABDOMEN: Soft, non-tender, non-distended with bowel sounds. MUSCULOSKELETAL: No tenderness, deformities, or effusions noted on gross inspection. EXTREMITIES: No cyanosis, clubbing or edema. SKIN: Inspection of the skin reveals no rashes NEUROLOGIC: Alert and oriented x 4. Strength and sensation to light touch were grossly intact x 4. Course Course Course Narrative: 41-year-old male with history and clinical presentation slightly suggestive of food poisoning, gastroenteritis and will obtain initial labs, administer. IV fluids. On review of all investigations there are no acute findings and on re-evaluation patient states he is feeling much better. He is noted to ambulate with a steady gait without any further evidence of dizziness. He is otherwise discharged home in stable condition. Medications Administered Discontinued Medications Generic Name Dose Route Start Last Admin Trade Name Freq PRN Reason Stop Dose Admin Sodium Chloride 2,000 mls @ 999 mls/hr 03/06/22 01:30 03/06/22 01:57 Ns IV 03/06/22 03:30 999 mls/hr .Q2H1M WANG Administration MDM - Nausea/Vomiting/Diarrhea Lab Data Result diagrams: 03/06/22 01:55 03/06/22 01:55 Labs: Lab Results 03/06/22 03/06/22 03/06/22 Range/Units 01:32 01:55 01:55 WBC 13.5 H (4.8-10.8) X10*3/uL RBC 5.55 (4.60-5.80) X10*6/uL Hgb 15.8 (14.0-18.0) g/dl Hct 47.8 (42.0-52.0) % MCV 86.1 (80.0-98.0) fL MCH 28.5 (27.0-33.0) pg MCHC 33.1 (31.0-36.0) g/dl RDW 12.0 (11.0-16.0) % Plt Count 236 (160-400) X10*3/uL MPV 10.3 (9.4-12.4) fL Immature Gran % (Auto) 0.4 (0.0-0.4) % Neut % (Auto) 82.9 H (45-73) % Lymph % (Auto) 11.4 L (20-40) % [place] % (Auto) 4.2 (2-11) % Eos % (Auto) 1.0 (0-4) % Baso % (Auto) 0.1 (0-2) % Lymph # (Auto) 1.5 (1.2-4.9) X10*3/uL [place] # (Auto) 0.6 (0.1-1.2) X10*3/uL Eos # (Auto) 0.1 (0.0-0.4) X10*3/uL Baso # (Auto) 0.0 (0.0-0.2) X10*3/uL Abs Immat Gran (auto) 0.05 H (0.00-0.03) X10*3/uL Absolute Neuts (auto) 11.1 H (2.0-8.3) x10*3/uL Absolute Nucleated RBC 0.000 (0.0-0.012) X10*3/uL Nucleated RBC % (auto) 0.0 (0.0-0.2) /100WBC Sodium 141 (135-145) mmol/L Potassium 4.1 (3.3-5.1) mmol/L Chloride 103 (96-108) mmol/L Carbon Dioxide 30 H (22-29) mmol/L Anion Gap 12 (12-20) BUN 11 (9-16) mg/dL Creatinine 0.91 (0.5-1.4) mg/dL Estim Creat Clear Calc 150.7 Estimated GFR > 60 POC Glucose 161 H (60-115) mg/dL Random Glucose 166 H (60-115) mg/dL Calcium 10.0 (8.4-10.2) mg/dL Total Bilirubin 0.6 (0.0-1.0) mg/dL AST 14 (5-37) U/L ALT 24 (0-40) U/L Alkaline Phosphatase 90 (39-117) U/L Troponin I High Sens (<3.5-35.0) ng/L Total Protein 7.2 (6.5-8.0) g/dL Albumin 4.6 (3.5-5.0) g/dL Lipase 16 (8-78) U/L Urine Color Urine Appearance Urine pH (5.0-9.0) Ur Specific [place] (1.005-1.025) Urine Protein (Neg-Trace) mg/dL Urine Glucose (UA) (Negative) mg/dL Urine Ketones (Negative) mg/dL Urine Blood (Negative) Urine Nitrite (Negative) Ur Leukocyte Esterase (Negative) Acetone, Qual Negative (Negative) 03/06/22 03/06/22 Range/Units 01:55 02:49 WBC (4.8-10.8) X10*3/uL RBC (4.60-5.80) X10*6/uL Hgb (14.0-18.0) g/dl Hct (42.0-52.0) % MCV (80.0-98.0) fL MCH (27.0-33.0) pg MCHC (31.0-36.0) g/dl RDW (11.0-16.0) % Plt Count (160-400) X10*3/uL MPV (9.4-12.4) fL Immature Gran % (Auto) (0.0-0.4) % Neut % (Auto) (45-73) % Lymph % (Auto) (20-40) % [place] % (Auto) (2-11) % Eos % (Auto) (0-4) % Baso % (Auto) (0-2) % Lymph # (Auto) (1.2-4.9) X10*3/uL [place] # (Auto) (0.1-1.2) X10*3/uL Eos # (Auto) (0.0-0.4) X10*3/uL Baso # (Auto) (0.0-0.2) X10*3/uL Abs Immat Gran (auto) (0.00-0.03) X10*3/uL Absolute Neuts (auto) (2.0-8.3) x10*3/uL Absolute Nucleated RBC (0.0-0.012) X10*3/uL Nucleated RBC % (auto) (0.0-0.2) /100WBC Sodium (135-145) mmol/L Potassium (3.3-5.1) mmol/L Chloride (96-108) mmol/L Carbon Dioxide (22-29) mmol/L Anion Gap (12-20) BUN (9-16) mg/dL Creatinine (0.5-1.4) mg/dL Estim Creat Clear Calc Estimated GFR POC Glucose (60-115) mg/dL Random Glucose (60-115) mg/dL Calcium (8.4-10.2) mg/dL Total Bilirubin (0.0-1.0) mg/dL AST (5-37) U/L ALT (0-40) U/L Alkaline Phosphatase (39-117) U/L Troponin I High Sens < 3.5 (<3.5-35.0) ng/L Total Protein (6.5-8.0) g/dL Albumin (3.5-5.0) g/dL Lipase (8-78) U/L Urine Color Yellow Urine Appearance Clear Urine pH 7.0 (5.0-9.0) Ur Specific [place] 1.020 (1.005-1.025) Urine Protein Negative (Neg-Trace) mg/dL Urine Glucose (UA) Negative (Negative) mg/dL Urine Ketones Trace (Negative) mg/dL Urine Blood Negative (Negative) Urine Nitrite Negative (Negative) Ur Leukocyte Esterase Negative (Negative) Acetone, Qual (Negative) ECG Data Attestation: I personally reviewed and interpreted this ECG as follows: Prior ECG tracings: available for review Interpretation: Normal sinus rhythm, HR-67, no STEMI, [place]/QRS/QTC are within normal limits. Discharge Plan Discharge Clinical Impression: Dehydration, Food poisoning Patient Disposition: Home, Self-Care Instructions: Dehydration (ED), Food Poisoning (ED) Additional Instructions: 1. Resume all home medications as prescribed. 2. Continue to drink plenty of fluids over the next 24 hours. Return to the ER for worsening symptoms. Prescriptions: No Action Trulicity 0.75 mg/0.5 mL pen injector 1 mg subcut QWEEK cefuroxime axetil 500 mg tablet 500 mg PO Q12H 7 Days Qty: 14 0RF cyclobenzaprine 10 mg tablet 10 mg PO TID PRN (Reason: muscle spasm) Qty: 14 0RF naproxen 500 mg tablet 500 mg PO BID PRN (Reason: pain) Qty: 20 0RF Referrals: [facility] [Primary Care Provider] -
[2022-03-06 01:36] LABS: Glucose, Whole Blood 161 mg/dL (60-115)
[2022-03-06] MEDS: 0.9 % Sodium Chloride 2,000 ML 999 ML IV (01:57)
[2022-03-06 02:07] LABS: MANUAL DIFF FLAG NO
[2022-03-06 02:08] LABS: Basophils Percent Auto 0.1 % (0-2); Eosinophils Absolute Auto 0.1 X10*3/uL (0.0-0.4); Hematocrit 47.8 % (42.0-52.0); Hemoglobin 15.8 g/dl (14.0-18.0); Imm Gran Abs Auto 0.05 X10*3/uL (0.00-0.03); Imm Gran Pct Auto 0.4 % (0.0-0.4); Lymphocytes Absolute Auto 1.5 X10*3/uL (1.2-4.9); Lymphocytes Percent Auto 11.4 % (20-40); Mean Corpuscular HGB Conc 33.1 g/dl (31.0-36.0); Mean Corpuscular Hemoglobin 28.5 pg (27.0-33.0); Mean Corpuscular Volume 86.1 fL (80.0-98.0); Mean Platelet Volume 10.3 fL (9.4-12.4); Monocytes Absolute Auto 0.6 X10*3/uL (0.1-1.2); Monocytes Percent Auto 4.2 % (2-11); Neutrophils Absolute Auto 11.1 x10*3/uL (2.0-8.3); Neutrophils Percent Auto 82.9 % (45-73); Platelet Count 236 X10*3/uL (160-400); Red Blood Count 5.55 X10*6/uL (4.60-5.80); White Blood Count 13.5 X10*3/uL (4.8-10.8)
[2022-03-06 02:09] VITALS: BP 128/88; PULSE 66; TEMP 36.6; O2SAT 97
[2022-03-06 02:19] LABS: Acetone, serum QL Negative (Negative)
[2022-03-06 02:23] LABS: Alanine Aminotransferase 24 U/L (0-40); Albumin Level 4.6 g/dL (3.5-5.0); Alkaline Phosphatase 90 U/L (39-117); Anion Gap 12 (12-20); Aspartate Amino Transferase 14 U/L (5-37); Bilirubin Total 0.6 mg/dL (0.0-1.0); Blood Urea Nitrogen 11 mg/dL (9-16); Carbon Dioxide 30 mmol/L (22-29); Chloride 103 mmol/L (96-108); Creatinine Clr Calc Pharmacy 150.7; Estimated Glomerular Filt Rate > 60; Glucose Random 166 mg/dL (60-115); Lipase 16 U/L (8-78); Potassium 4.1 mmol/L (3.3-5.1); Sodium 141 mmol/L (135-145); Total Protein 7.2 g/dL (6.5-8.0)
--- NOTE | 2022-03-06 03:07 | ECG_ITS ---
Test Reason : DIZZINESS Blood Pressure : / mmHG Vent. Rate : 067 BPM Atrial Rate : 067 BPM P-R Int : 166 ms QRS Dur : 080 ms QT Int : 406 ms P-R-T Axes : 034 020 026 degrees QTc Int : 429 ms Normal sinus rhythm Normal ECG When compared with ECG of 15-MAR-2021 06:31, No significant change was found Referred By: Honey Lema Electronically Signed By:CATRINA DICKERSON MD
[2022-03-06 03:40] LABS: Appearance Urine Clear; Color Urine Yellow; Glucose Urine UA Negative (Negative); Leukocyte Esterase Urine Negative (Negative); Nitrite Urine Negative (Negative); Urine Blood Negative (Negative); Urine Ketones Trace mg/dL (Negative); Urine Protein Negative (Neg-Trace)
[2022-03-06 04:00] VITALS: BP 145/70; PULSE 62; TEMP 37.1; O2SAT 97
[2022-03-06 04:04] LABS: Troponin-I High Sensitivity < 3.5 ng/L (<3.5-35.0)
== END 2022-03-06 06:15 | disposition home or self-care (01) ==
PROVIDERS: Emergency Provider Student in an Organized Health Care Education/Training Program
DX: A05.9 Bacterial foodborne intoxication, unspecified (principal); E86.0 Dehydration; R11.2 Nausea with vomiting, unspecified; E11.9 Type 2 diabetes mellitus without complications; F17.200 Nicotine dependence, unspecified, uncomplicated; F12.90 Cannabis use, unspecified, uncomplicated; Z79.84 Long term (current) use of oral hypoglycemic drugs; Z79.899 Other long term (current) drug therapy
CPT/HCPCS: 36415; 80053; 81003; 82009; 82947; 83690; 84484; 85025; 93005; 96360; 96361; 99285